=== PATIENT | male | born 1965 | race Caucasian/White ===

== ENCOUNTER 2016-12-04 18:50 | Observation (INO) | payer OTHER ==
[~2016-12-04] VITALS: Ht 177.8 cm; Wt 89.1 kg
[2016-12-04 19:02] VITALS: BP 179/98; PULSE 85; RESP 16; O2SAT 99
--- NOTE | 2016-12-04 19:07 | ED.REPORT ---
HPI-Neurologic Deficit Date of Service Dec 04, 2016 ED Provider: Brooks Narayan DO Patient is a 51 year old male with a history of hypertension and diabetes who presents to the ED complaining of left arm numbness onset earlier today. Associated symptoms include dizziness, of which he describes as feeling off balanced and that his head felt "off". He reports that his left arm started feeling heavy and weak, then got numb but that has since resolved itself and now he has whole body weakness. Patient denies vision changes or problems walking. He denies taking any ASA prior to arrival to the ED. Nursing Notes Stated Complaint: DIZZY Chief Complaint: Neuro Symptoms/ Deficits Nursing Notes Reviewed: Yes Allergies: Coded Allergies: No Known Allergies (Verified , 12/04/16) Uncoded Allergies: No Known Allergies (Allergy, Mild, 09/20/05) Scheduled Lisinopril (Lisinopril) 20 Mg Tablet 20 MG PO DAILYWD Metformin (Glucophage) 1,000 Mg Tablet 1,000 MG PO BIDWM General Time Seen by Provider: 19:00 Chief Complaint Weakness arm... (Left) Hx Obtained From: Patient Arrived By: Walk-in Sudden in Onset?: Yes Location: : Arm left Associated with: Reports: Weakness Recent Healthcare: No recent doctor visit, No recent hospitalization Past Medical History Past Medical History Reports: Diabetes mellitus, Hypertension Smoking History Never Smoker Ambulatory Status Independent Review of Systems Constitutional: Reports: Weakness - generalized Respiratory: Denies: Non-productive cough, Shortness of breath Neurologic: Reports: Dizziness, Numbness (left arm), Denies: Problem walking, Vision change Complete sys rev & neg: except as marked. Physical Exam Initial Vital Signs Vital Signs (First) Date Time Temp Pulse Resp B/P Pulse Ox O2 Delivery O2 Flow Rate FiO2 12/04/16 19:02 36.4 85 16 179/98 99 Room Air Initial VS: Reviewed General/Constitutional: Awake, Alert, No acute distress Head / Eyes: Atraumatic, Normocephalic, PERRL, EOMI Respiratory / Chest: Atraumatic, Breath sounds NL, Breath sounds = bilat, No respiratory distress Cardiovascular: Heart rate NL, Regular rhythm, Heart sounds NL Neurologic: Oriented X3, Speech NL, No motor deficits, No sensory deficits, CN II - XII intact, Cerebellar NL, Memory NL, Gait NL ENT: Atraumatic, Airway patent, Mucous membranes moist Neck: Atraumatic, Supple, Full range of motion Abdomen: Atraumatic, Soft, Non-tender Back: Atraumatic, Full range of motion Upper Extremity / MS: Atraumatic, Full range of motion Lower Extremity / Pelvis / MS: Atraumatic, Full range of motion Skin: Atraumatic, Color NL, No rash, Warm, Dry Psychiatric: Affect NL, Mood NL Interpretation & Diagnostics Lab Results Interpretation Result Diagram: 12/04/16190912/04/161909 Test 12/04/16 19:10 12/04/16 21:04 White Blood Count 7.5th/mm3 (3.8-10.1) Red Blood Count 4.33mil/mm3 (4.40-5.80) Hemoglobin 13.4g/dL (13.8-17.2) Hematocrit 40.7% (41.0-50.0) Mean Corpuscular Volume 94.0fL (81-100) Mean Corpuscular Hemoglobin 30.9pg (27.0-35.0) Mean Corpuscular Hemoglobin Concent 32.9% (32.0-37.0) Red Cell Distribution Width 13.0% (12.3-15.4) Platelet Count 269bil/L (150-400) Neutrophils (%) (Auto) 57.3% (40-74) Lymphocytes (%) (Auto) 30.3% (14-46) Monocytes (%) (Auto) 11.4% (4-12) Eosinophils (%) (Auto) 0.9% (0-5) Basophils (%) (Auto) 0.1% (0-3) Prothrombin Time 9.8sec (8.1-12.5) Prothromb Time International Ratio 0.92ratio Activated Partial Thromboplast Time 25.3sec (22.8-33.0) Sodium Level 139mEq/L (134-144) Potassium Level 3.9mEq/L (3.5-5.2) Chloride Level 101mEq/L (97-108) Carbon Dioxide Level 23mmol/L (18-29) Blood Urea Nitrogen 21mg/dL (6-24) Creatinine 0.70mg/dL (0.76-1.27) Estimat Glomerular Filtration Rate 126mL/min (>59) Glucose Level 225mg/dL (60-99) Calcium Level 9.9mg/dL (8.5-10.1) Total Bilirubin 0.3mg/dL (0.0-1.2) Aspartate Amino Transf (AST/SGOT) 23U/L (0-50) Alanine Aminotransferase (ALT/SGPT) 35U/L (0-44) Alkaline Phosphatase 45U/L (25-150) Troponin T < 0.010ug/L (0.0-0.011) Total Protein 7.3g/dL (6.4-8.4) Albumin 5.0g/dL (3.4-5.0) Triglycerides Level 61mg/dL (0-149) Cholesterol Level 119mg/dL (100-199) LDL Cholesterol, Calculated 44.800mg/dL (0-99) VLDL Cholesterol 12.200mg/dL HDL Cholesterol 62mg/dL (>39) Cholesterol/HDL Ratio 1.92 (0.0-4.4) Hold Ulrich Top Tube Received (Received) Urine Color Straw (YELLOW) Urine Appearance Hazy (CLEAR,HAZY) Urine pH 5.5 (5.0-8.0) Urine Specific [place] 1.014 (1.003-1.035) Urine Protein Negativemg/dL (NEG,TRACE) Urine Glucose (UA) Negativemg/dL (NEGATIVE) Urine Ketones Negativemg/dL (NEGATIVE) Urine Occult Blood Negative (NEGATIVE) Urine Nitrite Negative (NEGATIVE) Urine Bilirubin Negative (NEGATIVE) Urine Urobilinogen Normalmg/dL (NORMAL) Urine Leukocyte Esterase Negative (NEGATIVE) Urine RBC 0-2/hpf (0-2) Urine WBC 0-5/hpf (0-5) Urine Epithelial Cells Occasional/hpf (NONE-MOD) Urine Crystals None seen (NONE SEEN) Urine Bacteria None/hpf (NONE-FEW) Urine Hyaline Casts None/lpf (NONE) Urine Granular Casts None seen (NONE SEEN) Urine Waxy Casts None seen (NONE SEEN) Urine Red Blood Cell Casts None seen (NONE SEEN) Urine White Blood Cell Casts None seen (NONE SEEN) Urine Mucus Present (None Seen) Urine Trichomonas None seen (NONE SEEN) Urine Yeast None (NONE SEEN) Urinalysis Comment None Urine Culture Reflexed Not indicated ECG Interpretation ECG Interpretation: Non specific intraventricular conduction delay No ST changes Time: 19:14 Normal ECG Interpretation: Normal rate, Normal sinus rhythm CT Head Interpretation IMPRESSION: No acute intracranial abnormality. Findings relayed to Dr. Narayan via ER desk maker staff Sharifa on 12.04.16 at 1932 hrs. This study fulfills neurological imaging criteria for inclusion or exclusion of acute stroke therapies based on available published neurological imaging guidelines. Dictated by: Juan Banks M.D. on 12/04/2016 at 19:31 Approved by: Juan Banks M.D. on 12/04/2016 at 19:32 Interpretation / Wet Read by: Interpret - Radiologist Re-Eval/Medical Decision Med Decision/Clinical Course Concern for TIA or atypical angina. No TPA given because symptoms have resolved and NIH is now 0. Patient will be admitted for observation. Source of Hx: Old records Re-Evaluation/Progress : Time of Eval: 20:24 Re-Evaluation/Progress Note: Discussed results and plan for admittance. The patient understands and agrees to the plan for admittance. All questions were addressed. NIH Stroke Scale : Level of Consciousness: Alert and responsive (0) Ask Month & Age: Both questions right (0) Open/Close Eyes/Hand Hopper Operator: Performs both tasks (0) Horizontal EO Movements: None (0) Visual Morales: No visual loss (0) Facial Palsy: Normal symmetry (0) Right Arm Motor Drift (10s): No drift 10 sec (0) Left Arm Motor Drift (10s): No drift 10 sec (0) Right Leg Motor Drift (5s): No drift 5 sec (0) Left Leg Motor Drift (5s): No drift 5 sec (0) Limb Ataxia FNF/Heel-[place]: No ataxia (0) Sensation (Arms/Legs/Face): No sensory loss (0) Language Aphasia: No aphasia, normal (0) Dysarthria: No dysarthria, normal (0) Extinction/Inattention: No exctinct/inattent (0) NIHSS Score: 0 Time NIHSS Performed: 19:25 Date NIHSS Performed: Dec 04, 2016 Consultation : Referral / Consult Name: Michael Trivedi MD Consulted With: Hospitalist Call Returned at: 21:28 Meteorological Aide: Agrees with eval, Agrees with plan, Accepts admit Counseled Regarding: Diagnosis, Lab results, Need for admission Discharge & Departure Impression: Primary Impression: TIA (transient ischemic attack) Transient cerebral ischemia type: unspecified Qualified Code: G45.9 - Transient cerebral ischemic attack, unspecified Disposition: ADMITTED TO HOSPITAL Discharge Condition All VS Reviewed: Yes Condition: Stable Referrals: Atul Wallace (PCP) Ziyad Attestation Portions of this note were transcribed by Meena Robbins. I, Dr. Narayan personally performed the history, physical exam and medical decision-making; I reviewed and confirmed the accuracy of the information in the transcribed note. Signed by: Ziyad Teran, 12/04/16 and 2127. copies to: Atul Wallace Timothy S DO Dec 04, 2016 19:07 Lashae Robbins Dec 04, 2016 19:43
[2016-12-04] MEDS ORDERED: 0.9% Sodium Chloride 1,000 ML IV ONE (19:13)
[2016-12-04 19:30] LABS: BASOPHILS % (AUTO) 0.1 % (0-3); EOSINOPHILS % (AUTO) 0.9 % (0-5); MONOCYTES % (AUTO) 11.4 % (4-12); Mean Corpuscular Hemoglobin 30.9 pg (27.0-35.0); NEUTROPHILS % (AUTO) 57.3 % (40-74); Platelet Count 269 bil/L (150-400)
--- NOTE | 2016-12-04 19:34 | DRSVH ---
PROCEDURE: CT BRAIN (TPA) ([id number]) INDICATIONS: Stroke TECHNIQUE: Noncontrast 4.5 mm thick angled axial sections acquired from the foramen magnum to the vertex, with c oronal reformats. COMPARISON: None. FINDINGS: Image quality: Excellent. CSF spaces: Basal cisterns are patent. No extra-axial fluid collections. Ventricles are normal in size and shape. Brain: No midline shift. No intracranial masses or hemorrhage. Arriaga-white matter interface is norm al. Skull and face: Calvarium and visualized facial bones are intact, without suspicious lesions. Sinuses: Visualized sinuses and mastoids are clear. IMPRESSION: No acute intracranial abnormality. Findings relayed to Dr. Narayan via ER computer help desk representative sta Sharifa on 12.04.16 at 1932 hrs. This study fulfills neurological imaging criteria for inclusion or exclusion of acute stroke therapie s based on available published neurological imaging guidelines. Dictated by: Juan Banks M.D. on 12/04/2016 at 19:31 Approved by: Juan Banks M.D. on 12/04/2016 at 19:32
[2016-12-04 19:44] LABS: INR 0.92 ratio
--- NOTE | 2016-12-04 19:48 | DRSVH ---
PROCEDURE: X-RAY CHEST ONE VIEW, PORTABLE ([id number]) INDICATIONS: left arm heaviness TECHNIQUE: One view of the chest was acquired. COMPARISON: None. FINDINGS: Surgical changes and devices: None. Lungs and pleura: No pleural effusions or pneumothorax. Lungs are clear. Mediastinum: Mediastinal contours appear normal. Heart size is normal. Bones and chest wall: No suspicious bony lesions. Overlying soft tissues appear unremarkable. IMPRESSION: No acute process. Dictated by: Juan Banks M.D. on 12/04/2016 at 19:46 Approved by: Juan Banks M.D. on 12/04/2016 at 19:46
[2016-12-04 19:49] LABS: TROPONIN T < 0.010 ug/L (0.0-0.011)
[2016-12-04] MEDS ORDERED: METF1000 PO (21:00)
[2016-12-04] MEDS ORDERED: LISI-567 PO (21:00)
[2016-12-04 21:14] VITALS: BP 133/85; PULSE 69; RESP 15; O2SAT 97
[2016-12-04] MEDS ORDERED: Polyethylene Glycol (PEG) 17 Gm Powder PO PRN (21:35)
[2016-12-04] MEDS ORDERED: Labetalol 5 mg/mL 4 mL Inj IVPUSH PRN (21:35)
[2016-12-04] MEDS ORDERED: Alum-Mag Hydrox-Simeth 30 mL Suspension PO PRN (21:35)
[2016-12-04] MEDS ORDERED: Glucose 40% Oral Gel 15 Gm Tube PO PRN (21:35)
[2016-12-04] MEDS ORDERED: Ondansetron 2 mg/mL 2 mL Inj IVPUSH PRN (21:35)
[2016-12-04 21:56] LABS: APPEARANCE,URINE HAZY (CLEAR,HAZY); COLOR,URINE STRAW (YELLOW); OCCULT BLOOD,URINE NEGATIVE (NEGATIVE); PH,URINE 5.5 (5.0-8.0); UROBILINOGEN,URINE NORMAL (NORMAL)
[2016-12-04] MEDS: Insulin LISPRO 300 Unit/3 mL Inj SUBQ SCH (22:00)
[2016-12-04 22:07] VITALS: BP 133/85; PULSE 69; RESP 15; O2SAT 97
[2016-12-04 22:30] VITALS: PULSE 83
[2016-12-04 22:49] VITALS: BP 128/85; PULSE 71; RESP 18; O2SAT 97
--- NOTE | 2016-12-04 23:03 | PCM.HPMED ---
Subjective Date of Service Dec 04, 2016 Primary Provider: Admitting Physician: Michael Trivedi MD Primary Care Physician: Nopemery Attending Physician: Michael Trivedi MD Admit Status: From the Emergency Department, 23-Hour Observation, Remote Telemetry Chief Complaint: Left hand and arm numbness History of Present Illness: Ross Lyles is a 51 year old male with Hypertension, previous Smoker and diabetes who presents to [facility] emergency department complaining of left arm numbness onset earlier today. Patient reported he was barbecuing with a friend when he noted his left hand was numb and turning cold and feeling heavy. He noted some numbness radiating up his left arm, duration was about a few minutes then resolve spontaneously. Associated symptoms include dizziness, of which he describes as feeling off balanced and that his head felt "off". Patient denies vision changes or problems walking. He denies any similar episode before. 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 He feels tired and noted his diabetes is not well controlled. He quit smoking May last year. He reports compliance with his medications Patient currently without a PCP and [facility]. Case discussed with Dr Zamora, Ct head negative and was not a candidate for TPA. Plan to admit to complete stroke workup Review of Systems: Pertinent positives as noted in HPI. All other systems were reviewed and are negative Allergies Coded Allergies: No Known Allergies (Verified , 12/04/16) Uncoded Allergies: No Known Allergies (Allergy, Mild, 09/20/05) Home Medications From [facility], not yet confirmed Ross Lyles. [id number] 1965 02/03/2016 08:00 AM 08/15 lisinopril 20 mg tablet take 1 tablet (20MG) by oral route every day at bedtime METFORMIN 1000MG TAB TAKE ONE TABLET BY MOUTH TWICE DAILY WITH MORNING AND EVENING MEALS PMH Diabetes type 2 Hypertension Surgical History None Family History Father has Diabetes and heart issues Mother has Atrial fibrillation Social History Hx Alcohol Use: Yes Hx Substance Use: No Hx Tobacco Use: Yes Smoking Status: Former Smoker (quit May 2016) Living Arrangement: Alone Exam Vital Signs Vital Sign - Last Date Time Temp Pulse Resp B/P Pulse Ox O2 Delivery O2 Flow Rate FiO2 12/04/16 21:14 69 15 133/85 97 Room Air 12/04/16 19:02 36.4 Exam General: Alert, Oriented X3, Cooperative, No acute Distress Eyes: PERRLA, Scleral Anicteric Mouth: Mouth Normal, Mucous Membranes Moist/[place] Neck: Supple, no Thyromegaly, trachea central. Chest & Lungs: Clear to auscultation & percussion, No adventitious breath sounds, no crackles, no wheeze Cardiovascular: Normal S1, Normal S2, No Murmurs/Rubs/Gallops, Regular Rate/ Rhythm, (No JVD, no peripheral edema) Pulses: Radial (present and equal), Dorsalis Pedi (present and equal) Abdomen: Soft, Non-tender, Non-distended, Normoactive bowel tones. Musculoskeletal: Unremarkable. Normal range of motion, no swollen or erythematous joints Extremities: No edema, no cyanosis, no clubbing. Skin: No rashes. Warm and dry, no erythematous areas Lymphatic: Lymph nodes Cervical and Axillary not palpable. Neurological: Mental Status: Alert and Oriented without any slurred speech Cranial nerves: PERRL. Extraocular movements are intact with no nystagmus. Visual regan are full to direct confrontation. The face is symmetric, tongue midline Motor: Normal tone. Hold both arms and legs up off the bed. Good nip wrapper bilaterally Sensation: Intact to light touch throughout Coordination: Cerebellar function performed, intact bilateral Reflexes: 2 throughout, toes withdraw Gait: not tested Lab and Diagnostics Labs Laboratory Tests Test 12/04/16 19:10 12/04/16 21:04 White Blood Count 7.5th/mm3 (3.8-10.1) Red Blood Count 4.33mil/mm3 (4.40-5.80) Hemoglobin 13.4g/dL (13.8-17.2) Hematocrit 40.7% (41.0-50.0) Mean Corpuscular Volume 94.0fL (81-100) Mean Corpuscular Hemoglobin 30.9pg (27.0-35.0) Mean Corpuscular Hemoglobin Concent 32.9% (32.0-37.0) Red Cell Distribution Width 13.0% (12.3-15.4) Platelet Count 269bil/L (150-400) Neutrophils (%) (Auto) 57.3% (40-74) Lymphocytes (%) (Auto) 30.3% (14-46) Monocytes (%) (Auto) 11.4% (4-12) Eosinophils (%) (Auto) 0.9% (0-5) Basophils (%) (Auto) 0.1% (0-3) Prothrombin Time 9.8sec (8.1-12.5) Prothromb Time International Ratio 0.92ratio Activated Partial Thromboplast Time 25.3sec (22.8-33.0) Sodium Level 139mEq/L (134-144) Potassium Level 3.9mEq/L (3.5-5.2) Chloride Level 101mEq/L (97-108) Carbon Dioxide Level 23mmol/L (18-29) Blood Urea Nitrogen 21mg/dL (6-24) Creatinine 0.70mg/dL (0.76-1.27) Estimat Glomerular Filtration Rate 126mL/min (>59) Glucose Level 225mg/dL (60-99) Calcium Level 9.9mg/dL (8.5-10.1) Total Bilirubin 0.3mg/dL (0.0-1.2) Aspartate Amino Transf (AST/SGOT) 23U/L (0-50) Alanine Aminotransferase (ALT/SGPT) 35U/L (0-44) Alkaline Phosphatase 45U/L (25-150) Troponin T < 0.010ug/L (0.0-0.011) Total Protein 7.3g/dL (6.4-8.4) Albumin 5.0g/dL (3.4-5.0) Hold Ulrich Top Tube Received (Received) Result Diagram: 12/04/16190912/04/161909 X-Rays, CTs and MRIs CT BRAIN (TPA) 12/04 IMPRESSION: No acute intracranial abnormality. Findings relayed to Dr. Narayan via ER front desk coordinator staff Sharifa on 12.04.16 at 1932 hrs. This study fulfills neurological imaging criteria for inclusion or exclusion of acute stroke therapies based on available published neurological imaging guidelines. Dictated by: Juan Banks M.D. on 12/04/2016 at 19:31 Approved by: Juan Banks M.D. on 12/04/2016 at 19:32 ----- X-RAY CHEST ONE VIEW, PORTABLE 12/04 IMPRESSION: No acute process. Dictated by: Juan Banks M.D. on 12/04/2016 at 19:46 Approved by: Juan Banks M.D. on 12/04/2016 at 19:46 Assessment & Plan Ross Lyles is a 51 year old male with Hypertension, Smoker and diabetes who presents to [facility] emergency department complaining of left arm numbness 1. Transient Ischemic Attack with left arm numbness. Present on admission. Resolved Risk factors for Stroke includes Diabetes, Hypertension, Smoking history and age. CT head showed no bleeding and not a TPA candidate due to presentation outside window time - monitor on telemetry for Atrial Fibrillation - complete echo, Carotid Ultrasound and MRA/MRI brain - Physical, Speech and Occupational therapy assessment - discussed Aspirin daily for secondary prevention and antiplatelet therapy - checking Lipid panel 2. Diabetes Type 2. - holding Metformin - checking A1c, goal < 7 for secondary Stroke prevention - low correction Lispro algorithm - Diabetes inpatient education 3 Hypertension - allow permissive hypertension till Stroke is ruled out - holding Lisinopril tonight 4 Nicotine dependence, now in remission Congratulated patient on this endeavor - Acetaminophen as needed for mild pain/fever/headache - Bowel regimen as needed - Antiemetic as needed Patient is admitted under observation status with expected length of stay less than 2 midnights due to severity of presenting symptoms, risk of adverse event, and complexity of treatment plan. . Resuscitation Status: CPR: Attempt Resuscitation Michael Trivedi MD Dec 04, 2016 21:43
[2016-12-05] VITALS (8 sets, daily range): BP systolic 115–140; BP diastolic 79–89; PULSE 52–72; RESP 16–20; O2SAT 96–97
--- NOTE | 2016-12-05 02:11 | NUR ---
ADMIT Patient admit for Stroke protocol, all left sided weakness resolved. Denies any pain. Neuro checks wnl. Oriented to room and call light. Patient steady on feet. Will continue to monitor.
[2016-12-05] MEDS: Insulin LISPRO 300 Unit/3 mL Inj SUBQ SCH ×5 (08:00→21:43)
--- NOTE | 2016-12-05 09:03 | NUR ---
Social Work: Screening Data: Pt is a 51 y/o male admitted for TIA. Pt's PCP is not listed, pt's insurance is [facility] [employer]. EMR reviewed. Readmit score not listed. PT, OT, ST have been ordered. FRUIT INSPECTOR will continue to follow for possible d/c needs. Assessment: Pt who is independent at baseline. Plan: Pt will likely d/c home via POV when medically stable. PT, OT, ST have been ordered. FRUIT INSPECTOR will continue to follow for possible d/c needs. JAMAICA Medina
--- NOTE | 2016-12-05 09:27 | DRSVH ---
PROCEDURE: MRA ANGIOGRAM HEAD WITHOUT CONTRAST ([id number]) INDICATIONS: R/O CVA TECHNIQUE: Noncontrast axial 3-D [id number] MR angiogram, with 3-dimensional maximum intensity projection (M IP) reformats of the internal carotid arteries and posterior circulation then performed. COMPARISON: [facility], CT, BRAIN (TPA), 12/04/2016, 19:21. FINDINGS: Image quality: Diagnostic Anterior circulation: Intracranial internal carotid arteries demonstrate normal size and intralumina l flow signal. The flow within the paired anterior cerebral arteries is normal and symmetric. The f low within the middle cerebral arteries is normal and symmetric. The anterior communicating artery i s seen. No stenoses, occlusions, or aneurysms. Posterior circulation: Visualized portions of the vertebral arteries demonstrate normal caliber, and join to form a normal appearing basilar artery. The flow within the posterior cerebral arteries is normal and symmetric. No stenoses, occlusions, or aneurysms. IMPRESSION: Unremarkable MR angiogram of the head. The vessels of the [place] are patent wi thout occlusions or aneurysms. Dictated by: Robb Bhat M.D. on 12/05/2016 at 8:23 Approved by: Robb Bhat M.D. on 12/05/2016 at 8:25
--- NOTE | 2016-12-05 09:33 | DRSVH ---
PROCEDURE: MRI BRAIN WITHOUT CONTRAST ([id number]) INDICATIONS: LEFT ARM NUMBNESS TECHNIQUE: Noncontrast axial T1 spin echo, axial T2 fast spin echo, sagittal and axial FLAIR, coronal T2 fast sp in echo, axial gradient echo, axial diffusion and ADC through the brain. COMPARISON: [facility], MR, [facility] 12/04/2016, 19:21. FINDINGS: Image quality: Diagnostic. Brain: There is no acute intra-axial or extra-axial hemorrhage. No extra-axial fluid collection is i dentified. There is no midline shift or mass effect. The orbits are grossly unremarkable. A few punctate areas of increased flair signal are identified within the deep white matter of the garrick ateral frontal lobes (image 13, series 10). No masses are identified. There is no parenchymal edema . No restricted diffusion is present. The midline intracranial structures are within normal limits. The major expected intracranial flow voids are visualized and unremarkable. The ventricles and cortical sulci are age-appropriate. Bones: The imaged osseous structures are grossly intact. No suspicious osseous lesions are identifie d. No mucosal thickening of the inferior maxillary sinuses is noted. There also may be mild mucosal thickening of the ethmoid air cells. Otherwise, the remainder of the paranasal sinuses and the mast oid air cells are clear. Extracranial soft tissues: The imaged overlying soft tissues of the face and head are grossly unremar kable. IMPRESSION: 1. No acute intracranial hemorrhage or ischemia. 2. Minimal nonspecific white matter changes. 3. No parenchymal mass. 4. Mild sinus disease. Dictated by: Robb Bhat M.D. on 12/05/2016 at 8:27 Approved by: Robb Bhat M.D. on 12/05/2016 at 8:31
--- NOTE | 2016-12-05 11:53 | NUR ---
Evaluation completed. Please go to "Notes" then click on "Assessments and Notes" (bottom left corner of screen). Then select appropriate discipline tab on top of screen.
--- NOTE | 2016-12-05 13:24 | NUR ---
NUTRITION/DIABETES EDUCATION Uncontrolled Type II DM pt. Provided pt with diet instruction and referral to outpatient diabetes program. Pt receptive.
--- NOTE | 2016-12-05 14:02 | DRSVH ---
PROCEDURE: US BILATERAL DUPLEX DOPPLER IMAGING OF THE CAROTIDS ([id number]) INDICATIONS: R/O Carotid Disease if no MRA or CTA Neck TECHNIQUE: Color and pulse Doppler interrogation was performed of both carotid systems, with image documentation and velocity measurements. COMPARISON: None. FINDINGS: All stenosis calculations are based on NASCET criteria. Right side: Brachial blood pressure: 147/78 mm Hg. Common Carotid Artery(Distal) PSV: 84.10 cm/s Internal Carotid Artery PSV- Proximal: 70.20 cm/s Mid-lon.10 cm/s Distal: 102.40 cm/s EDV - Proximal: 27.80 cm/s Mid-lon.70 cm/s Distal: 46.90 cm/s External Carotid Artery(Proximal) PSV: 124.20 cm/s ICA/CCA PSV ratio: 1.2 Arriaga scale imaging description: No identified calcific or soft plaque Percent internal carotid artery stenosis: None identified.. Vertebral artery: Flow direction is antegrade. Left side: Brachial blood pressure: 133/84 mm Hg. Common Carotid Artery(Distal) PSV: 87 cm/s Internal Carotid Artery PSV - Proximal: 80.20 cm/s Mid-lon.60 cm/s Distal: 68.40 cm/s EDV - Proximal: 31.40 cm/s Mid-lon cm/s Distal: 24.10 cm/s External Carotid Artery(Proximal) PSV: 117 cm/s ICA/CCA PSV ratio: 1.2 Arriaga scale imaging description: No calcific or soft plaque Percent internal carotid artery stenosis: None found. Vertebral artery: Flow direction is antegrade. IMPRESSION: No calcific or soft plaque identified over the proximal internal carotid arteries bilater ally, no stenosis identified. Vertebral arterial flow is antegrade in direction bilaterally. Dictated by: Walker Tomlinson M.D. on 12/05/2016 at 13:59 Approved by: Walker Tomlinson M.D. on 12/05/2016 at 14:00
--- NOTE | 2016-12-05 15:43 | NUR ---
Pt. screened. No OT need. Dc order. Antony Soria, OTR/L
[2016-12-05] MEDS ORDERED: ASPI-973 PO (16:21)
--- NOTE | 2016-12-05 16:23 | DRSVH ---
[facility] [address] [place] [address] Echocardiogram Report Name: MIKHAIL RAJPUT Date: 12/05/2016 Height: 70 in Hospital Exam Location: [facility] Weight: 199 lb Gender: Male BSA: 2.1 m2 : 1965 Age: 51 yrs BP: 115/79 mmHg Reason For Study: CVA Ordering Physician: Performed By: [facility] Interpretation Summary 1) Normal left ventricular thickness, size, wall motion, and systolic function (EF 60-65%). 2) Normal right ventricular size and function. 3) No significant valvular abnormalities. 4) Injection of contrast documented no interatrial shunt. 5) No prior Echo available for comparison. Procedure: A two-dimensional transthoracic echocardiogram with color flow and Doppler was performed. The study quality was technically adequate. There is no prior echocardiogram noted for this patient. A saline contrast injection was performed to assess for cardiac shunting. The saline contrast documented no interatrial shunt. The patient was in normal sinus rhythm during the exam. Left Ventricle: The left ventricle is normal in size, wall thickness, and systolic function without any focal wall motion abnormalities. The LVOT velocity is 1.7 m/s. The left ventricular outflow velocity with valsalva is 0.9 m/s. The ejection fraction is estimated to be 60-65%. Left ventricular systolic function is normal without focal wall motion abnormalities. Assessment of diastolic parameters indicates normal left ventricular diastolic function and normal filling pressures. Right Ventricle: The right ventricle is normal in size, thickness and function. Atria: Both atria are normal in size. Injection of contrast documented no interatrial shunt. Mitral Valve: The mitral valve leaflets appear normal. There is no evidence of stenosis, fluttering, or prolapse. There is trace mitral regurgitation. Aortic Valve: The aortic valve is trileaflet. The aortic valve opens well. There is no aortic valve stenosis. There is trace aortic regurgitation. Tricuspid Valve: The tricuspid valve is normal. Pulmonary artery pressures cannot be estimated because of the lack of a measurable TR jet velocity. There is a trace or physiologic amount of tricuspid regurgitation. Pulmonic Valve: The pulmonic valve leaflets are thin and pliable; valve motion is normal. There is trace pulmonic regurgitation. Great Vessels: The aortic root is normal size. The ascending aorta is normal in size. The aortic arch is normal in size. The pulmonary artery is normal size. The IVC is of normal diameter and collapses greater than 50% with a sniff. This suggests a low right atrial pressure of 3 mm Hg. Pericardium/ Pleura There is no pericardial effusion. There is no pleural effusion. MMode/2D Measurements & Calculations LVIDd: 4.7 cm LA dimension: 3.8 cm RA long axis LVOT diam: 2.2 cm LVIDs: 3.2 cm Ao root diam FS: 30.6 % LA A2 area: 19.9 cm RA area EPSS: 0.56 cm LA A4 area: 15.4 cm asc Aorta Diam IVSd: 0.78 cm LA length (vol) : 16.3 cm LVPWd: 0.77 cm RA vol Ao Arch Diam (Prox LA vol: 64.9 ml : 50.4 ml Trans): 2.6 cm LA vol index RA : 24.2 mm2 IVC diam: 1.9 cm LV michael. diameter/BSA LV sys. diameter/BSA RVD1 (basal) RVD2 (mid): 2.8 cm (cm/m^2): 2.2 (cm/m^2): 1.6 TAPSE: 2.3 cm Doppler Measurements & Calculations Ao V2 max MV E max az MV E/A: 1.1 PA V2 max : 167.2 cm/sec : 95.2 cm/sec Med Peak E' Az : 88.9 cm/sec Ao max PG MV A max za PA mean PG : 11.2 mmHg : 86.2 cm/sec E/E' med: 8.7 Ao mean PG MV P1/2t: 48.9 msec Lat Peak E' Az PA Accel Time : 0.12 sec LVOT Max Az E/E' lat: 6.9 : 173.8 cm/sec E/e' average: 7.8 Pulm A Revs Dur ANGEL(I,D): 4.0 cm sev ratio MV A dur: 0.09 sec MV dec time MV P1/2t max az Ao V2 mean LV V1 max PG : 0.17 sec : 111.5 cm/sec MVA(P1/2t): 4.5 cm2 Ao V2 VTI: 29.7 cm LV V1 VTI ANGEL(V,D): 3.8 cm2 : 32.4 cm PA V2 mean ANGEL indexed to BSA Pulm A Revs Dur - MV A : 69.2 cm/sec (cm^2/m^2): 1.9 Dur: 0.01 msec Reading Physician:04:20 PM
--- NOTE | 2016-12-05 17:08 | NUR ---
Neuro Pt AOX3. No deficits noted. Pt ambulated independently with steady gait. AC/HS BG checks. Tele SB 50- SR 60's. Pt has order to d/c off tele for shower if he wants. Pt aware of plan of care. Possible discharge tomorrow morning.
[2016-12-06 01:02] VITALS: BP 109/72; PULSE 56; RESP 18; O2SAT 96
--- NOTE | 2016-12-06 01:45 | PCM.PNMED ---
Subjective Date of Service Dec 06, 2016 Exam Vital Signs Vital Sign - Last Date Time Temp Pulse Resp B/P Pulse Ox O2 Delivery O2 Flow Rate FiO2 12/06/16 01:02 36.5 56 18 109/72 96 Room Air Intake and Output 12/05/16 12/05/16 12/06/16 Cumulative From/Thru 15:00 23:00 07:00 12/04/16 19:02 - 12/05/16 18:20 Intake Total 800 ml 1800 ml Output Total 950 ml 950 ml Balance -150 ml 850 ml Intake Oral 800 ml 800 ml IV Total 0 ml 1000 ml Output Urine Total 950 ml 950 ml # Bowel Movements 1 1 Exam Gen.: No acute distress HEENT: Normocephalic, atraumatic Heart: Regular rate and rhythm no S3-S4 murmurs Lungs: Completely clear to auscultation no crackles or wheezes Abdomen soft nontender nondistended Extremities: Negative for edema Neuro exam unremarkable cranial nerves, Romberg's, [id number], alternating hands, Babinski's are all within normal. He has no weakness in the upper extremities and lower extremities. Patellar reflex 2+ and Achilles reflex 1+ Psychiatric negative for anxiety IVs and Medications Medications Reviewed: Medications were reviewed in detail Lab and Diagnostics Laboratory Tests Test 12/05/16 10:15 12/05/16 16:40 Troponin T 0.010ug/L (0.0-0.011) < 0.010ug/L (0.0-0.011) Result Diagram: 12/04/16190912/04/161909 X-Rays, CTs and MRIs CT BRAIN (TPA) 12/04 IMPRESSION: No acute intracranial abnormality. Findings relayed to Dr. Narayan via ER automotive electrical helper staff Sharifa on 12.04.16 at 1932 hrs. This study fulfills neurological imaging criteria for inclusion or exclusion of acute stroke therapies based on available published neurological imaging guidelines. Dictated by: Juan Banks M.D. on 12/04/2016 at 19:31 Approved by: Juan Banks M.D. on 12/04/2016 at 19:32 ----- X-RAY CHEST ONE VIEW, PORTABLE 12/04 IMPRESSION: No acute process. Dictated by: Juan Banks M.D. on 12/04/2016 at 19:46 Approved by: Juan Banks M.D. on 12/04/2016 at 19:46 PROCEDURE: US BILATERAL DUPLEX DOPPLER IMAGING OF THE CAROTIDS ([id number]) IMPRESSION: No calcific or soft plaque identified over the proximal internal carotid arteries bilaterally, no stenosis identified. Vertebral arterial flow is antegrade in direction bilaterally. Dictated by: Walker Tomlinson M.D. on 12/05/2016 at 13:59 Approved by: Walker Tomlinson M.D. on 12/05/2016 at 14:00 PROCEDURE: MRA ANGIOGRAM HEAD WITHOUT CONTRAST ([id number]) INDICATIONS: R/O CVA IMPRESSION: Unremarkable MR angiogram of the head. The vessels of the [place] are patent without occlusions or aneurysms. Dictated by: Robb Bhat M.D. on 12/05/2016 at 8:23 Approved by: Robb Bhat M.D. on 12/05/2016 at 8:25 Cardiac Echo Impressions Echocardiogram Report Reason For Study: CVA Ordering Physician: [facility]formed [facility]: [facility] Interpretation Summary 1) Normal left ventricular thickness, size, wall motion, and systolic function (EF 60-65%). 2) Normal right ventricular size and function. 3) No significant valvular abnormalities. 4) Injection of contrast documented no interatrial shunt. 5) No prior Echo available for comparison. Reading Physician:04:20 PM Report status: Addendum REPORT#: [id number] Assessment & Plan Ross Lyles is a 51 year old male with Hypertension, Smoker and diabetes who presents to [facility] emergency department complaining of left arm numbness 1. Transient Ischemic Attack with left arm numbness. Present on admission. Resolved Risk factors for Stroke includes Diabetes, Hypertension, Smoking history and age. CT head showed no bleeding and not a TPA candidate due to presentation outside window time - monitor on telemetry for Atrial Fibrillation: None so far - complete echo, Carotid Ultrasound and MRA/MRI brain: No acute findings - Physical, Speech and Occupational therapy assessment - discussed Aspirin daily for secondary prevention and antiplatelet therapy - Lipid panel appears WNL, may still benefit form low dose statin. Will initiate. 2. Diabetes Type 2. - holding Metformin - checking A1c, goal < 7 for secondary Stroke prevention - low correction Lispro algorithm - Diabetes inpatient education 3 Hypertension - Restarted Lisinopril as he did not have a stroke. 4 Nicotine dependence, now in remission Congratulated patient on this endeavor - Acetaminophen as needed for mild pain/fever/headache - Bowel regimen as needed - Antiemetic as needed Patient is admitted under observation status with expected length of stay less than 2 midnights due to severity of presenting symptoms, risk of adverse event, and complexity of treatment plan. . Disposition: To home 12/06 on aspirin and statin. His third troponin was not back to later in the evening12/05, echo was not tried to later in the evening, patient does not have a current PCP, residency clinic has a backlog. Thus we wanted to verify his labs before letting him go home. Please set him up with residency clinic for follow-up. Resuscitation Status: CPR: Attempt Resuscitation Shara Howard DO Dec 06, 2016 01:45
[2016-12-06 04:28] VITALS: BP 113/69; PULSE 47; RESP 18; O2SAT 97
--- NOTE | 2016-12-06 05:50 | NUR ---
Neuro Pt alert and oriented x3. Neuro check intact. BELCHER. Tylenol noted effective for c/o headache. Ambulate in room with steady gait. Telemetry SR-SB 60s-40s.
--- NOTE | 2016-12-06 07:37 | PCM.DIMED ---
Discharge Instructions Date of Service Dec 06, 2016 Dates of Hospitalization Dec 04, 2016 at 21:29 Discharge Diagnosis Discharge Diagnosis Transient left arm numbness, possible Transient Ischemic Attack Diabetes Type 2. Hypertension Diet Low fat, Low Sodium Activity No restrictions Call your provider Weakness (unilateral) Patient Instructions Follow-up with PCP in: 2 weeks Rohini Weber MD Dec 06, 2016 07:37
--- NOTE | 2016-12-06 07:44 | PCM.DC.MED ---
Discharge Summary Date of Service Dec 06, 2016 Dates of Hospitalization Date of Hospital Admission Dec 04, 2016 at 21:29 Date of Discharge: Dec 06, 2016 Providers: Admitting Physician: Michael Trivedi MD Primary Care Physician: Nopemery Attending Physician: Michael Trivedi MD Diagnosis at Time of Discharge Diagnosis at Time of Discharge Transient left arm numbness, possible Transient Ischemic Attack Diabetes Type 2. Hypertension Procedures XRay, CTs & MRIs CT BRAIN (TPA) 12/04 IMPRESSION: No acute intracranial abnormality. Findings relayed to Dr. Narayan via ER bowling or skating front desk clerk staff Sharifa on 12.04.16 at 1932 hrs. This study fulfills neurological imaging criteria for inclusion or exclusion of acute stroke therapies based on available published neurological imaging guidelines. Dictated by: Juan Banks M.D. on 12/04/2016 at 19:31 Approved by: Juan Banks M.D. on 12/04/2016 at 19:32 ----- X-RAY CHEST ONE VIEW, PORTABLE 12/04 IMPRESSION: No acute process. Dictated by: Juan Banks M.D. on 12/04/2016 at 19:46 Approved by: Juan Banks M.D. on 12/04/2016 at 19:46 PROCEDURE: US BILATERAL DUPLEX DOPPLER IMAGING OF THE CAROTIDS ([id number]) IMPRESSION: No calcific or soft plaque identified over the proximal internal carotid arteries bilaterally, no stenosis identified. Vertebral arterial flow is antegrade in direction bilaterally. Dictated by: Walkre Tomlinson M.D. on 12/05/2016 at 13:59 Approved by: Walker Tomlinson M.D. on 12/05/2016 at 14:00 PROCEDURE: MRA ANGIOGRAM HEAD WITHOUT CONTRAST ([id number]) INDICATIONS: R/O CVA IMPRESSION: Unremarkable MR angiogram of the head. The vessels of the [place] are patent without occlusions or aneurysms. Dictated by: Robb Bhat M.D. on 12/05/2016 at 8:23 Approved by: Robb Bhat M.D. on 12/05/2016 at 8:25 Cardiac Echo Impression Echocardiogram Report Reason For Study: CVA Ordering Physician: Performed By: Chanelle Crowder [facility] Interpretation Summary 1) Normal left ventricular thickness, size, wall motion, and systolic function (EF 60-65%). 2) Normal right ventricular size and function. 3) No significant valvular abnormalities. 4) Injection of contrast documented no interatrial shunt. 5) No prior Echo available for comparison. Reading Physician:04:20 PM Report status: Addendum REPORT#: [id number] Brief History Ross Lyles is a 51 year old male with Hypertension, previous Smoker and diabetes who presents to [facility] emergency department complaining of left arm numbness onset earlier today. Patient reported he was barbecuing with a friend when he noted his left hand was numb and turning cold and feeling heavy. He noted some numbness radiating up his left arm, duration was about a few minutes then resolve spontaneously. Associated symptoms include dizziness, of which he describes as feeling off balanced and that his head felt "off". Patient denies vision changes or problems walking. He denies any similar episode before. 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 He feels tired and noted his diabetes is not well controlled. He quit smoking May last year. He reports compliance with his medications Patient currently without a PCP and wants to be referred to [facility] to establish care. Case discussed with Dr Zamora, Ct head negative and was not a candidate for TPA. Plan to admit to complete stroke workup Hospital Course Ross Lyles is a 51 year old male with Hypertension, Smoker and diabetes who presents to [facility] emergency department complaining of left arm numbness 1. Transient Ischemic Attack with left arm numbness. Present on admission. Resolved Risk factors for Stroke includes Diabetes, Hypertension, Smoking history and age. CT head showed no bleeding and not a TPA candidate due to presentation outside window time - monitor on telemetry for Atrial Fibrillation: None so far - complete echo, Carotid Ultrasound and MRA/MRI brain: No acute findings - Physical, Speech therapy assessments unremarkable - Aspirin daily for secondary prevention and antiplatelet therapy - Lipid panel - low LDL, will not initiate statin at this time, could be considered by PCP 2. Diabetes Type 2. - Metformin held - low correction Lispro algorithm - A1c 7.5, goal < 7 for secondary Stroke prevention 3 Hypertension - Restarted Lisinopril as he did not have a stroke (initially held) 4 Nicotine dependence, now in remission Congratulated patient on this endeavor Exam Vital Signs (Last) Date Time Temp Pulse Resp B/P Pulse Ox O2 Delivery O2 Flow Rate FiO2 12/06/16 04:28 36.4 47 18 113/69 97 Room Air Exam Alert, oriented, feels back to usual self Heart: Regular, tele SR Lungs: clear Extrem: no pedal edema Neuro: no apparent deficits, hand division controller strong and equal Test 12/04/16 19:10 12/04/16 21:04 12/05/16 16:40 White Blood Count 7.5th/mm3 (3.8-10.1) Red Blood Count 4.33mil/mm3 (4.40-5.80) Hemoglobin 13.4g/dL (13.8-17.2) Hematocrit 40.7% (41.0-50.0) Mean Corpuscular Volume 94.0fL (81-100) Mean Corpuscular Hemoglobin 30.9pg (27.0-35.0) Mean Corpuscular Hemoglobin Concent 32.9% (32.0-37.0) Red Cell Distribution Width 13.0% (12.3-15.4) Platelet Count 269bil/L (150-400) Neutrophils (%) (Auto) 57.3% (40-74) Lymphocytes (%) (Auto) 30.3% (14-46) Monocytes (%) (Auto) 11.4% (4-12) Eosinophils (%) (Auto) 0.9% (0-5) Basophils (%) (Auto) 0.1% (0-3) Prothrombin Time 9.8sec (8.1-12.5) Prothromb Time International Ratio 0.92ratio Activated Partial Thromboplast Time 25.3sec (22.8-33.0) Sodium Level 139mEq/L (134-144) Potassium Level 3.9mEq/L (3.5-5.2) Chloride Level 101mEq/L (97-108) Carbon Dioxide Level 23mmol/L (18-29) Blood Urea Nitrogen 21mg/dL (6-24) Creatinine 0.70mg/dL (0.76-1.27) Estimat Glomerular Filtration Rate 126mL/min (>59) Glucose Level 225mg/dL (60-99) Hemoglobin A1c 7.5% (4.8-5.6) Calcium Level 9.9mg/dL (8.5-10.1) Total Bilirubin 0.3mg/dL (0.0-1.2) Aspartate Amino Transf (AST/SGOT) 23U/L (0-50) Alanine Aminotransferase (ALT/SGPT) 35U/L (0-44) Alkaline Phosphatase 45U/L (25-150) Total Protein 7.3g/dL (6.4-8.4) Albumin 5.0g/dL (3.4-5.0) Triglycerides Level 61mg/dL (0-149) Cholesterol Level 119mg/dL (100-199) LDL Cholesterol, Calculated 44.800mg/dL (0-99) VLDL Cholesterol 12.200mg/dL HDL Cholesterol 62mg/dL (>39) Cholesterol/HDL Ratio 1.92 (0.0-4.4) Hold Ulrich Top Tube Received (Received) Urine Color Straw (YELLOW) Urine Appearance Hazy (CLEAR,HAZY) Urine pH 5.5 (5.0-8.0) Urine Specific [place] 1.014 (1.003-1.035) Urine Protein Negativemg/dL (NEG,TRACE) Urine Glucose (UA) Negativemg/dL (NEGATIVE) Urine Ketones Negativemg/dL (NEGATIVE) Urine Occult Blood Negative (NEGATIVE) Urine Nitrite Negative (NEGATIVE) Urine Bilirubin Negative (NEGATIVE) Urine Urobilinogen Normalmg/dL (NORMAL) Urine Leukocyte Esterase Negative (NEGATIVE) Urine RBC 0-2/hpf (0-2) Urine WBC 0-5/hpf (0-5) Urine Epithelial Cells Occasional/hpf (NONE-MOD) Urine Crystals None seen (NONE SEEN) Urine Bacteria None/hpf (NONE-FEW) Urine Hyaline Casts None/lpf (NONE) Urine Granular Casts None seen (NONE SEEN) Urine Waxy Casts None seen (NONE SEEN) Urine Red Blood Cell Casts None seen (NONE SEEN) Urine White Blood Cell Casts None seen (NONE SEEN) Urine Mucus Present (None Seen) Urine Trichomonas None seen (NONE SEEN) Urine Yeast None (NONE SEEN) Urinalysis Comment None Urine Culture Reflexed Not indicated Troponin T < 0.010ug/L (0.0-0.011) Discharge Medications Discharge Medications Aspirin (Aspirin) 81 Mg Tablet 81 MG PO DAILY Prescribed by: SHAHRIAR CR DO Lisinopril (Lisinopril) 20 Mg Tablet 20 MG PO DAILYWD (Reported) Metformin (Glucophage) 1,000 Mg Tablet 1,000 MG PO BIDWM (Reported) Followup Plan Discharge Diet: Low fat, Low Sodium Discharge Activity: No restrictions Follow-up with PCP in: 2 weeks Rohini Weber MD Dec 06, 2016 07:44 Discharge Medications Discharge Medications Aspirin (Aspirin) 81 Mg Tablet 81 MG PO DAILY Prescribed by: SHAHRIAR CR DO Lisinopril (Lisinopril) 20 Mg Tablet 20 MG PO DAILYWD (Reported) Metformin (Glucophage) 1,000 Mg Tablet 1,000 MG PO BIDWM (Reported) Followup Plan Discharge Diet: Low fat, Low Sodium Discharge Activity: No restrictions Follow-up with PCP in: 2 weeks Rohini Weber MD Dec 06, 2016 07:44
[2016-12-06 08:00] VITALS: PULSE 76
[2016-12-06] MEDS: Insulin LISPRO 300 Unit/3 mL Inj SUBQ SCH (08:00)
[2016-12-06 08:23] VITALS: BP 123/78; PULSE 54; RESP 16; O2SAT 96
--- NOTE | 2016-12-06 11:08 | NUR ---
DISCHARGE Patient discharged at 1020, left under own power and will drive himself home. Medications reviewed and follow up appointments reviewed, patient verbalized understanding. Patient denies pain, nausea, and shortness of breath. Care notes provided on stroke and teaching done on TIA's and risk factors of stroke.
== END 2016-12-06 10:15 | disposition home or self-care (01) ==
LOC: SED 18:50 → MOC 21:29
PROVIDERS: ADMIT Hospitalist; ATTEND Hospitalist
DX: R20.0 Anesthesia of skin (principal); R53.1 Weakness; R42 Dizziness and giddiness; G45.9 Transient cerebral ischemic attack, unspecified; E11.9 Type 2 diabetes mellitus without complications; I10 Essential (primary) hypertension; Z87.891 Personal history of nicotine dependence; Z79.82 Long term (current) use of aspirin; Z79.4 Long term (current) use of insulin
CPT/HCPCS: 36415; 70450; 70544; 70551; 71010; 80053; 80061; 81000; 82948; 83036; 84484; 85025; 85610; 85730; 92610; 93005; 93880; 96360; 97161; 99285; C8929; G0378; G8978; G8979; G8980; J1650; J1815; J7030